=== PATIENT | male | born 1980 ===

== ENCOUNTER 2018-12-10 13:08 | Day surgery (SDC) | payer OTHER ==
[~2018-12-10] VITALS: Ht 177.8 cm; Wt 103.3 kg
[~2018-12-10 13:08] MED LIST: NAPR220 PO
--- NOTE | 2018-12-10 15:32 | NUR ---
12/10/18 1532 Yanna Thomas PT INTO RECLINER WITHOUT DIFFICULTY. PT MEDICATED WITH IV FENTANYL FOR LEFT KNEE PAIN. POLAR PACK IN PLACE AND PILLOW UNDER LEFT ANKLE. PT RATES PAIN 7/10 IN LEFT KNEE.
== END 2018-12-10 16:17 | disposition home or self-care (01) ==
LOC: ORSCSDS 13:08
PROVIDERS: Orthopaedic Surgery
PROC: 0SBD4ZZ Excision of Left Knee Joint, Percutaneous Endoscopic Approach (ICD-10-PCS; principal; 2018-12-10 14:30)
DX: S83.242A Other tear of medial meniscus, current injury, left knee, initial encounter (principal); M94.262 Chondromalacia, left knee
CPT/HCPCS: A9270-GY; J0171; J0690; J1100; J1885; J2250; J2405; J2704; J2795; J3010; J7120